=== PATIENT | male | born 1950 | race Caucasian/White ===

== ENCOUNTER 2024-10-13 11:51 | Emergency (ER) | payer OTHER, BC ==
[2024-10-13 13:54] LABS: Absolute Eosinophils 0.1 K/uL (0-0.5); Absolute Lymphocytes (CBC) 1.7 K/uL (0.7-4.9); Absolute Monocytes 0.6 K/uL (0.1-1.3); Absolute Neutrophil 4.7 K/uL (1.8-8.0); Basophils % 0.7 % (0-1.3); Eosinophils % 1.3 % (0-4.4); Hematocrit 41.1 % (39.6-49.0); Hemoglobin 14.1 g/dL (13.6-17.9); Lymphocytes % 23.5 % (15.3-44.8); MCH 31.7 pg (27.0-35.0); MCHC 34.2 g/dL (32.0-36.0); MCV 92.7 fL (80-100); Monocytes % 8.4 % (3.3-12.3); Neutrophils % 66.1 % (41.7-73.7); Nucleated Red Blood Cells % 0.1 % (0-0); Platelets 268 thou/uL (152-406); RBC Red Blood Cell Count 4.43 M/uL (4.33-5.43)
[2024-10-13 13:58] LABS: PT Prothrombin Time 11.4 SECONDS (9.4-12.5); Protime INR 1.02
[2024-10-13 14:08] LABS: Albumin 3.7 g/dL (3.4-5.0); Albumin/Globulin Ratio 1.2 (1.1-1.8); Anion Gap 9.2 mEq/L (5.0-15.0); Bilirubin Total 0.7 mg/dL (0.2-1.0); Globulin 3.1 g/dL (2.3-3.5); Potassium 4.2 mEq/L (3.5-5.1); Protein, Total 6.8 g/dL (6.4-8.2)
--- NOTE | 2024-10-13 15:05 | RAD REPORT ---
EXAMINATION: CT ABDOMEN AND PELVIS WITH CONTRAST CLINICAL INDICATION: rectal bleeding TECHNIQUE: CT abdomen and pelvis was performed, after the administration of IV contrast, as per [facility] protocol. Axial, sagittal and coronal reconstructions were obtained. One or more of the following dose reduction techniques were used: Automated exposure control, adjustment of the mA and k V according to patient size, and iterative reconstruction. Unless otherwise specified, incidental findings do not require dedicated imaging follow-up. COMPARISON: No prior exam. FINDINGS: LOWER CHEST: The visualized lung bases are clear. LIVER: Normal in size and contour. No focal lesion. Grossly unremarkable gallbladder. SPLEEN: Normal size. No focal lesion. PANCREAS: No mass, ductal dilation, or irma-pancreatic fluid. ADRENALS: Normal; no mass. KIDNEYS: Normal size and contour. No hydronephrosis. Benign cysts right kidney. GASTROINTESTINAL TRACT: No evidence of free air, significant intra-abdominal free fluid, bowel obstru ction or abscess. There is moderate diverticulosis coli of the sigmoid colon without diverticulitis. APPENDIX: Normal appendix. LYMPH NODES: No lymphadenopathy. MUSCULOSKELETAL: No acute or suspicious osseous abnormality. ADDITIONAL FINDINGS: Aortoiliac atherosclerotic changes. IMPRESSION: No acute abnormalities seen in the abdomen or pelvis. Prominent sigmoid diverticulosis coli is seen. No evidence of diverticulitis. Colonoscopy would be carrillo ggested if not recently performed.
--- NOTE | 2024-10-13 15:40 | EDPHYS ---
Physician Documentation [facility] Name: Akira Oshea Jr Age: 73 yrs Sex: Male : 1950 Arrival Date: 10/13/2024 Time: 11:51 Bed 20 Private MD: ED Physician Cornelius Castro HPI: 10/13 15:28 This 73 yrs old Male presents to ER via Ambulatory with complaints of Rectal Bleeding. rn 15:28 The patient presents to the emergency department with bleeding from the rectum/anus, rn that is mild. Onset: The symptoms/episode began/occurred today. Context: the patient has no known special context relating to the rectal area complaint(s). Associate signs and symptoms: Pertinent positives: constipation, Pertinent negatives: abdominal pain. The patient has not experienced similar symptoms in the past. Patient reports history of hemorrhoids. Started Ozempic recently and has had increasing constipation. Usually has bleeding with bowel movements and wiping back today during bowel movement passed large amount of red blood. No abdominal pain or pelvic pain. No rectal or anal pain. Single episode. Not on blood thinners. Has had a colonoscopy 3 years ago and was normal. No dizziness or shortness of breath.. 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 - Infectious Disease History:: Denies. - Social history:: Smoking status: Patient denies any tobacco usage or history of. - Family history:: not pertinent. - Hospitalizations: : No recent hospitalization is reported. ROS: 15:28 Constitutional: Negative for fever, chills, and weight loss, Cardiovascular: Negative rn for chest pain, palpitations, and edema, Respiratory: Negative for shortness of breath, cough, wheezing, and pleuritic chest pain, Abdomen/GI: Negative for abdominal pain, nausea, vomiting, diarrhea MS/Extremity: Negative for injury and deformity, Neuro: Negative for headache, weakness, numbness, tingling, and seizure, Exam: 15:28 Constitutional: This is a well developed, well nourished patient who is awake, alert, rn and in no acute distress. Cardiovascular: Regular rate and rhythm. No pulse deficits. Respiratory: No increased work of breathing, no retractions or nasal flaring. Abdomen/GI: Soft, nontender. 2 external hemorrhoids noted with dried blood. No tenderness. No evidence of thrombosed hemorrhoid. No active bleeding. No tear or fissure. Neuro: Awake and alert, GCS 15 Vital Signs: 12:30 Pulse 60; Resp 15; Temp 98.4(O); Pulse Ox 99% ; Weight 77.11 kg; Height 5 ft. 9 in. ; ss Pain 0/10; 15:34 BP 134 / 72; Pulse 62; Resp 16; Pulse Ox 99% on R/A; ko1 12:30 Body Mass Index 25.10 (77.11 kg, 175.26 cm) ss 12:30 Pain Scale: Adult ss MDM: 12:23 Medical Screening Exam initiated rn 15:28 Differential diagnosis: hemorrhoids, fissure, Diverticulosis, internal hemorrhoids, rn BILL. Data reviewed: vital signs, nurses notes, lab test result(s), radiologic studies, CT scan, and as a result, I will discharge patient. Counseling: I had a detailed discussion with the patient and/or guardian regarding the historical points, exam findings, and any diagnostic results supporting the discharge/admit diagnosis, lab results, radiology results, the need for outpatient follow up, to return to the emergency department if symptoms worsen or persist or if there are any questions or concerns that arise at home. Special discussion: I discussed with the patient/guardian in detail that at this point there is no indication for admission to the hospital. It is understood, however, that if the symptoms persist or worsen the patient needs to return immediately for re-evaluation. Based on the history and exam findings, there is no indication for further emergent testing or inpatient evaluation. I discussed with the patient/guardian the need to see the colorectal surgeon for further evaluation of the symptoms. I discussed with the patient/guardian the need to see the power transformer repairer for further evaluation of the symptoms. I discussed with the patient/guardian the need to see the general surgeon for further evaluation of the symptoms. ED course: No further bleeding. Does have external hemorrhoids but unclear if bleeding from external or internal. CT shows diverticulosis. Normal H\T\H and vital signs. Will discharge home with increased water intake, stool softeners and laxative. Strict return precautions given and understood. If improves will follow-up electively with general surgeon or GI doctor. Understands if continues to bleed or symptoms worsen will return and likely will require admission with endoscopy or colonoscopy to identify source of bleeding.. 10/13 12:24 Order name: CBC with Diff; Complete Time: 14:10 rn 10/13 12:24 Order name: CMP; Complete Time: 14:10 rn 10/13 12:24 Order name: Lipase; Complete Time: 14:10 rn 10/13 12:24 Order name: Protime (+inr); Complete Time: 14:10 rn 10/13 12:24 Order name: Ptt, Activated; Complete Time: 14:10 rn 10/13 12:24 Order name: CT Abd/Pelvis - IV Contrast Only; Complete Time: 15:12 rn 10/13 12:24 Order name: IV Saline Lock; Complete Time: 13:42 rn 10/13 12:24 Order name: Labs collected and sent; Complete Time: 13:42 rn Administered Medications: No medications were administered Disposition Summary: 10/13/24 15:39 Discharge Ordered Notes: Location: Home rn Problem: new rn Symptoms: have improved rn Condition: Stable rn Diagnosis - Encounter for screening for lower gastrointestinal disorder rn - Diverticulosis of large intestine without perforation or abscess with bleeding rn Followup: rn - With: Demarco Pinto MD - When: As needed - Reason: Recheck today's complaints, Re-evaluation by your physician Followup: rn - With: Felipe Powell MD - When: 2 - 3 days - Reason: Recheck today's complaints, Re-evaluation by your physician Discharge Instructions: - Discharge Summary Sheet rn - Constipation, Adult rn - Diverticulosis rn - Gastrointestinal Bleeding rn Forms: - Medication Reconciliation Form rn - Antibiotic pattern hand - Prescription Opioid Use rn - Patient Portal Instructions rn - Leadership Thank You Letter rn Signatures: Dispatcher [employer] Cornelius Oliva MD MD rn Blanchard, Shelby, RN RN ss Oliver, Kathy RN RN ko1
--- NOTE | 2024-10-13 15:40 | ER ---
Nurse's Notes [facility] Name: Akira Oshea Jr Age: 73 yrs Sex: Male : 1950 Arrival Date: 10/13/2024 Time: 11:51 Bed 20 Private MD: Diagnosis: Encounter for screening for lower gastrointestinal disorder;Diverticulosis of large intestine without perforation or abscess with bleeding Presentation: 10/13 12:30 Chief complaint: Patient states: Rectal bleeding while having a BM today and was ss bleeding while taking a shower. HX of hemorrhoids. Coronavirus screen: Client denies travel out of the [place] in the last 14 days. Ebola Screen: Patient denies exposure to infectious person. Patient denies travel to an Ebola-affected area in the 21 days before illness onset. Initial Sepsis Screen: Does the patient meet any 2 criteria? No. Patient's initial sepsis screen is negative. Does the patient have a suspected source of infection? No. Patient's initial sepsis screen is negative. Risk Assessment: Do you want to hurt yourself or someone else? Patient reports no desire to harm self or others. Onset of symptoms was October 13, 2024. 12:30 Method Of Arrival: Ambulatory ss 12:30 Acuity: MARGOT 3 ss Triage Assessment: 14:00 General: Appears in no apparent distress. Behavior is calm, cooperative, appropriate ko1 for age. 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 - Infectious Disease History:: Denies. - Social history:: Smoking status: Patient denies any tobacco usage or history of. - Family history:: not pertinent. - Hospitalizations: : No recent hospitalization is reported. Screenin:32 [facility] ED Fall Risk Assessment (Adult) History of falling in the last 3 months, ko1 including since admission No falls in past 3 months (0 pts) Confusion or Disorientation No (0 pts) Intoxicated or Sedated No (0 pts) Impaired Gait No (0 pts) Mobility Assist Device Used No (0 pt) Altered Elimination No (0 pt) Score/Fall Risk Level 0 - 2 = Low Risk Oriented to surroundings, Maintained a safe environment, Educated pt \T\ family on fall prevention, incl call for assistance when getting out of bed, Assessed \T\ reinforced patient's understanding of fall precautions, Hourly rounding (assess needs \T\ fall precautionary measures) done. Abuse screen: Denies threats or abuse. Denies injuries from another. Nutritional screening: No deficits noted. Tuberculosis screening: No symptoms or risk factors identified. Assessment: 13:42 Reassessment: Dr. Castro at bedside to assess pt. ss 14:00 Pain: Denies pain. ko1 Vital Signs: 12:30 Pulse 60; Resp 15; Temp 98.4(O); Pulse Ox 99% ; Weight 77.11 kg; Height 5 ft. 9 in. ; ss Pain 0/10; 15:34 BP 134 / 72; Pulse 62; Resp 16; Pulse Ox 99% on R/A; ko1 12:30 Body Mass Index 25.10 (77.11 kg, 175.26 cm) ss 12:30 Pain Scale: Adult ss ED Course: 11:56 Patient arrived in ED. ra3 12:23 Cornelius Castro MD is Attending Physician. rn 12:33 Triage completed. ss 12:33 Arm band placed on right wrist. ss 13:04 Humaira Marques, RN is Primary Nurse. ko1 13:42 CBC with Diff Sent. ss 13:42 CMP Sent. ss 13:42 Lipase Sent. ss 13:42 Protime (+inr) Sent. ss 13:42 Ptt, Activated Sent. ss 13:42 Inserted saline lock: 20 gauge in right antecubital area, using aseptic technique. ss Blood collected. Flushed with 10 mL NS. 14:00 Patient has correct armband on for positive identification. Placed in gown. Bed in low ko1 position. Call light in reach. Side rails up X 1. Provided Education on: labs. Pulse ox on. NIBP on. Door closed. Noise minimized. Lights dimmed. Warm blanket given. Pillow given. 14:00 No provider procedures requiring assistance completed. ko1 14:25 CT Abd/Pelvis - IV Contrast Only In Process Unspecified. EDMS 15:33 Demarco Pinto MD is Referral Physician. rn 15:33 Felipe Powell MD is Referral Physician. rn 15:33 IV discontinued, intact, bleeding controlled, No redness/swelling at site. Pressure ko1 dressing applied. Administered Medications: No medications were administered Medication: 15:32 VIS not applicable for this client. ko1 Outcome: 15:39 Discharge ordered by . rn 15:42 Discharged to home ambulatory, with family, ko1 15:42 Condition: stable 15:42 Discharge instructions given to patient, family, Instructed on discharge instructions, follow up and referral plans. Demonstrated understanding of instructions, follow-up care, 15:43 Patient left the ED. ko1 Signatures: Dispatcher [employer] EDMS Cornelius Castro MD MD rn Blanchard, Shelby, RN RN ss Oliver, Kathy, RN RN ko1 Lindsay Merlos
[2024-10-13 15:47] VITALS: TEMP 98.4; O2SAT 99
[2024-10-13 15:49] VITALS: BP 134/72
== END 2024-10-13 15:43 | disposition home or self-care (01) ==
LOC: ER 11:51
DX: Z13.811 Encounter for screening for lower gastrointestinal disorder (principal); K57.30 Diverticulosis of large intestine without perforation or abscess without bleeding; Z95.1 Presence of aortocoronary bypass graft
CPT/HCPCS: 85025; 36415; 85610; 85730; 83690; 80053; 74177; 99284; Q9967

== ENCOUNTER 2024-11-22 16:55 | Observation (INO) | payer OTHER, BC ==
--- NOTE | 2024-11-22 17:36 | RAD REPORT ---
EXAMINATION: CT HEAD WITHOUT CONTRAST CLINICAL INDICATION: Male, 74 years old.AMS TECHNIQUE: Axial CT images from the skull base to the vertex without intravenous contrast. Coronal an d sagittal reformatted images were created from the data set. One or more of the following dose reduction techniques were used: Automated exposure control, adjustment of the mA and/or kV according to patient size, and/or iterative reconstruction. Unless otherwise specified, incidental findings do not require dedicated imaging follow-up. [id number]. COMPARISON: No prior exam. FINDINGS: INTRACRANIAL: No acute intracranial hemorrhage. No hydrocephalus. Arachnoid cyst at the left no crani al fossa. No significant white matter disease. VASCULATURE: No visualized abnormalities in the arteries or dural venous sinuses. SCALP/SKULL: No significant soft tissue or osseous abnormalities. SINUSES: The visualized paranasal sinuses and mastoid air cells are predominantly clear. IMPRESSION: No acute intracranial abnormality.
[2024-11-22 18:15] LABS: Absolute Lymphocytes (CBC) 0.3 K/uL (0.7-4.9); Absolute Monocytes 0.5 K/uL (0.1-1.3); Absolute Neutrophil 5.5 K/uL (1.8-8.0); Basophils % 0.3 % (0-1.3); Eosinophils % 0.4 % (0-4.4); Hematocrit 38.6 % (39.6-49.0); Hemoglobin 12.9 g/dL (13.6-17.9); Lymphocytes % 5.4 % (15.3-44.8); MCH 31.4 pg (27.0-35.0); MCHC 33.5 g/dL (32.0-36.0); MCV 93.9 fL (80-100); MPV 7.9 fL (7.6-11.3); Neutrophils % 85.9 % (41.7-73.7); Platelets 183 thou/uL (152-406); RBC Red Blood Cell Count 4.11 M/uL (4.33-5.43); Red Cell Distribution Width 13.2 % (12.1-15.2)
[2024-11-22 18:48] LABS: Albumin 3.4 g/dL (3.4-5.0); Albumin/Globulin Ratio 1.1 (1.1-1.8); Anion Gap 9.6 mEq/L (5.0-15.0); Bilirubin Total 0.6 mg/dL (0.2-1.0); Potassium 3.6 mEq/L (3.5-5.1); Protein, Total 6.4 g/dL (6.4-8.2)
[2024-11-22 20:27] LABS: Specific Gravity 1.007 (1.005-1.030); Sqamous Epithelial None Seen /HPF (None Seen); Urine Bacteria <20 /HPF (<20); Urine Bilirubin NEGATIVE (Negative); Urine Blood Negative (Negative); Urine Clarity Clear (Clear); Urine Color Light-Yellow (Yellow); Urine Culture Reflex Order NOT NEEDED; Urine Glucose NEGATIVE (Negative); Urine Ketones NEGATIVE (Negative); Urine Microscopic Reflex YN ORDER UMIC; Urine Nitrite NEGATIVE (Negative); Urine Protein NEGATIVE (Negative); Urine RBC <5 /HPF (None Seen); Urine Urobilinogen Normal (Normal); Urine WBC <5 /HPF (<5)
--- NOTE | 2024-11-22 20:31 | RAD REPORT ---
EXAM: Chest Single View HISTORY: Cough;Congestion COMPARISON: None. FINDINGS: LUNGS/PLEURA: The lungs are clear. No pleural effusions or pneumothorax. No pulmonary edema. MEDIASTINUM: The mediastinal silhouette is within normal limits. CARDIAC: Mild cardiomegaly UPPER ABDOMEN: No significant abnormality. BONES: Sternotomy. No acute abnormality. LINES/TUBES/OTHER: N/A IMPRESSION: No evidence of acute cardiopulmonary disease.
[2024-11-22] MEDS ORDERED: NA CHLORIDE 0.9% 500 ML ONE (20:34)
--- NOTE | 2024-11-22 20:47 | ER ---
Nurse's Notes [facility] Name: Akira Oshea Jr Age: 74 yrs Sex: Male : 1950 Arrival Date: 11/22/2024 Time: 16:55 Bed 26 Private MD: Diagnosis: Altered mental status, unspecified;Influenza due to identified novel influenza A virus Presentation: 11/22 19:40 Chief complaint: see paper charting. Coronavirus screen: At this time, the client does jb4 not indicate any symptoms associated with coronavirus-19. Ebola Screen: No symptoms or risks identified at this time. Initial Sepsis Screen: Does the patient meet any 2 criteria? No. Patient's initial sepsis screen is negative. Does the patient have a suspected source of infection? No. Patient's initial sepsis screen is negative. Risk Assessment: Do you want to hurt yourself or someone else? Patient reports no desire to harm self or others. Onset of symptoms was November 22, 2024. 19:40 Acuity: MARGOT 3 jb4 19:40 Method Of Arrival: Ambulatory jb4 Historical: - Allergies: 20:09 No Known Allergies; jb4 - PMHx: 20:09 GERD; insomnia; jb4 - PSHx: 20:09 CABG 2011; jb4 Screenin:09 [facility] ED Fall Risk Assessment (Adult) History of falling in the last 3 months, jb4 including since admission No falls in past 3 months (0 pts) Confusion or Disorientation No (0 pts) Intoxicated or Sedated No (0 pts) Impaired Gait No (0 pts) Mobility Assist Device Used No (0 pt) Altered Elimination No (0 pt) Score/Fall Risk Level 0 - 2 = Low Risk Oriented to surroundings, Maintained a safe environment. Abuse screen: Denies threats or abuse. Nutritional screening: No deficits noted. Tuberculosis screening: No symptoms or risk factors identified. Assessment: 18:10 General: Appears in no apparent distress. comfortable, Behavior is calm, cooperative, jb4 appropriate for age. Pain: Denies pain. Neuro: Level of Consciousness is awake, alert, obeys commands, Oriented to person, place, time, situation, Pt and family reports visual hallucinations.. Cardiovascular: Patient's skin is warm and dry. Respiratory: Airway is patent Respiratory effort is even, unlabored, Respiratory pattern is regular, symmetrical. Derm: Skin is intact, Skin is pink, warm \T\ dry. 19:30 Reassessment: Patient appears in no apparent distress at this time. Patient and/or jb4 family updated on plan of care and expected duration. Pain level reassessed. Patient is alert, oriented x 3, equal unlabored respirations, skin warm/dry/pink. 20:32 Reassessment: Patient appears in no apparent distress at this time. Patient and/or jb4 family updated on plan of care and expected duration. Pain level reassessed. Patient is alert, oriented x 3, equal unlabored respirations, skin warm/dry/pink. Vital Signs: 19:39 BP 163 / 56; Pulse 91; Resp 16; Pulse Ox 96% on R/A; jb4 20:32 BP 153 / 50; Pulse 70; Resp 16; Temp 99.5(O); Pulse Ox 95% on R/A; jb4 21:30 BP 161 / 54; Pulse 76; Resp 16; Pulse Ox 95% on R/A; jb4 22:30 BP 152 / 52; Pulse 70; Resp 18; Temp 101.5; Pulse Ox 97% on R/A; jb4 22:30 Given tylenol as ordered on [employer]. jb4 ED Course: 18:26 Patient arrived in ED. iw 18:26 CT In Process Unspecified. EDMS 18:28 Magdalena Snyder FNP-C [facility]. kb 18:28 Peggy Han MD is Attending Physician. kb 18:29 Mauro Subramanian, RN is Primary Nurse. jb4 19:41 Triage completed. jb4 20:09 Patient has correct armband on for positive identification. Bed in low position. Call jb4 light in reach. Side rails up X 1. Provided Education on: plan of care. 20:09 No provider procedures requiring assistance completed. jb4 20:23 Chest Single View XRAY In Process Unspecified. EDMS 20:47 Nessa Velarde MD is Hospitalizing Provider. kb 21:30 Patient admitted, IV remains in place. jb4 Administered Medications: 20:43 Drug: NS 0.9% IV 500 ml 500 ml IV at 1 bolus once; to be given as a bolus over 30 jb4 minutes Volume: 500 ml; Route: IV; Rate: 1 bolus; Site: right antecubital; 21:15 Follow up: Response: No adverse reaction; IV Status: Completed infusion; IV Intake: jb4 500ml Intake: 21:15 IV: 500ml; Total: 500ml. jb4 Outcome: 20:47 Decision to Hospitalize by Provider. kb 21:30 Admitted to Med/surg accompanied by nurse, via wheelchair, room 206, with chart, jb4 21:30 Condition: stable 21:30 Discharge instructions given to patient, family, Instructed on the need for admit, Demonstrated understanding of instructions, 23:27 Patient left the ED. jb4 Signatures: Dispatcher [employer] EDMS Magdalena Snyder, REINFORCER-C REINFORCER-Ariadne Raya, RN RN iw Mauro Subramanian, RN RN jb4 Corrections: (The following items were deleted from the chart) 20:08 18:30 Reassessment: Patient appears in no apparent distress at this time. Patient jb4 and/or family updated on plan of care and expected duration. Pain level reassessed. Patient is alert, oriented x 3, equal unlabored respirations, skin warm/dry/pink. jb4 20:08 17:30 Reassessment: Patient appears in no apparent distress at this time. Patient jb4 and/or family updated on plan of care and expected duration. Pain level reassessed. Patient is alert, oriented x 3, equal unlabored respirations, skin warm/dry/pink. jb4 20:43 20:32 BP 153 / 50; Pulse 70bpm; Resp 16bpm; Pulse Ox 95% RA; jb4 jb4
--- NOTE | 2024-11-22 20:47 | EDPHYS ---
Physician Documentation [facility] Name: Akira Oshea Jr Age: 74 yrs Sex: Male : 1950 Arrival Date: 11/22/2024 Time: 16:55 Bed 26 Private MD: ED Physician Peggy Han HPI: 11/22 21:30 This 74 yrs old Male presents to ER via Ambulatory with complaints of AMS. kb 21:30 Patient is a 74-year-old male with a 3-day history of cough, congestion, runny nose, kb wheezing and fever. Went to Dr. Han's office today and was given a DuoNeb in the office, tested negative for flu. After they left Dr. 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 States when he got home he started watching TV was telling his about the program he was watching in great detail but the TV was not on. states patient was hallucinating. Upon arrival to the ER patient was rearranging the chairs in the lobby but is not sure why he was doing that. Denies headache, dizziness. Historical: - Allergies: 20:09 No Known Allergies; jb4 - PMHx: 20:09 GERD; insomnia; jb4 - PSHx: 20:09 CABG 2011; jb4 ROS: 21:30 Constitutional: As per HPI kb Exam: 19:50 Constitutional: This is a well developed, well nourished patient who is awake, alert, kb and in no acute distress. Head/Face: Normocephalic, atraumatic. ENT: Moist Mucous membranes Cardiovascular: Regular rate Respiratory: Respirations even and unlabored. No increased work of breathing. Talking in full sentences Abdomen/GI: Soft, non-tender. No distention Skin: Warm, dry with normal turgor. Normal color. MS/ Extremity: Pulses equal, no cyanosis. Neurovascular intact. Full, normal range of motion. Neuro: Awake and alert, GCS 15, oriented to person, place, time, and situation. 19:50 ECG was reviewed by the Attending Physician. Vital Signs: 19:39 BP 163 / 56; Pulse 91; Resp 16; Pulse Ox 96% on R/A; jb4 20:32 BP 153 / 50; Pulse 70; Resp 16; Temp 99.5(O); Pulse Ox 95% on R/A; jb4 21:30 BP 161 / 54; Pulse 76; Resp 16; Pulse Ox 95% on R/A; jb4 22:30 BP 152 / 52; Pulse 70; Resp 18; Temp 101.5; Pulse Ox 97% on R/A; jb4 22:30 Given tylenol as ordered on [employer]. jb4 MDM: 18:30 Medical Screening Exam initiated kb 21:30 Differential Diagnosis: CVA, electrolyte abnormality, intracranial bleed, UTI, volume kb depletion. Data reviewed: vital signs, nurses notes. Consideration of Admission/Observation Patient was admitted/placed on observation. Escalation of care including admission/observation considered. Management of patient was discussed with the following: Hospitalist: Dr Velarde accepts pt for admission. Historians other than the Patient: Spouse/Significant Other: . Counseling: I had a detailed discussion with the patient and/or guardian regarding the historical points, exam findings, and any diagnostic results supporting the discharge/admit diagnosis, lab results, radiology results, the need for further work-up and treatment in the hospital. 11/22 18:26 Order name: CBC with Automated Diff EDMS 11/22 18:26 Order name: Comprehensive Metabolic Panel; Complete Time: 18:51 EDMS 11/22 18:26 Order name: Urinalysis w/ reflexes EDMS 11/22 19:54 Order name: Flu; Complete Time: 20:21 kb 11/22 20:05 Order name: Urinalysis w/ reflexes; Complete Time: 20:28 EDMS 11/22 21:19 Order name: ABG: vbg; Complete Time: 23:01 kb 11/22 22:18 Order name: Ammonia EDMS 11/22 22:18 Order name: Vitamin B12 Level EDMS 11/22 22:18 Order name: T4 Free EDMS 11/22 22:18 Order name: Thyroid Stimulating Hormone EDMS 11/22 22:18 Order name: Urinalysis w/ reflexes EDMS 11/22 22:18 Order name: CBC with Automated Diff EDMS 11/22 22:18 Order name: CBC with Automated Diff EDMS 11/22 22:18 Order name: Comprehensive Metabolic Panel EDMS 11/22 22:18 Order name: Comprehensive Metabolic Panel EDMS 11/22 22:18 Order name: Phosphorus EDMS 11/22 22:18 Order name: Phosphorus EDTN 11/22 22:18 Order name: Blood Culture EDTN 11/22 18:26 Order name: CT EDTN 11/22 19:54 Order name: Chest Single View XRAY; Complete Time: 20:40 kb 11/22 18:26 Order name: EKG Electrocardiogram EDTN 11/22 19:34 Order name: Misc. Order: collect urine and obtain EKG please; Complete Time: 20:23 kb EC:50 Rate is 72 beats/min. Rhythm is regular. QRS Nolan is Normal. OR interval is normal at kb 176 msec. QRS interval is normal at 94 msec. QT interval is normal at 405 msec. Administered Medications: 20:43 Drug: NS 0.9% IV 500 ml 500 ml IV at 1 bolus once; to be given as a bolus over 30 jb4 minutes Volume: 500 ml; Route: IV; Rate: 1 bolus; Site: right antecubital; 21:15 Follow up: Response: No adverse reaction; IV Status: Completed infusion; IV Intake: jb4 500ml Disposition Summary: 11/22/24 20:47 Hospitalization Ordered Notes: Hospitalization Status: Observation kb Provider: Nessa Velarde Location: Telemetry/MedSurg (observation) kb Condition: Stable kb Problem: new kb Symptoms: are unchanged kb Bed/Room Type: [facility] Room Assignment: 206(11/22/24 21:46) kmf Diagnosis - Altered mental status, unspecified kb - Influenza due to identified novel influenza A virus kb Forms: - Medication Reconciliation Form kb - SBAR form kb - Leadership Thank You Letter kb Signatures: Dispatcher [employer] Magdalena Thompson FNP-C FNP-Ckb Bryson, James, RN RN jb4 Nadya Carranza kmf Corrections: (The following items were deleted from the chart) 21:46 20:47 kb kmf
--- NOTE | 2024-11-22 22:06 | P.HP ---
Certification for Inpatient Patient admitted to: Observation With expected LOS: <2 Midnights Practitioner: I am a practitioner with admitting privileges, knowledge of patient current condition, hospital course, and medical plan of care. Services: Services provided to patient in accordance with Admission requirements found in Title 42 Section 412.3 of the Code of Federal Regulations Patient History Date of Service: 11/22/24 Reason for admission: influenza, confusion History of Present Illness: 74-year-old male with past medical history of GERD, insomnia suspected sleep apnea CABG in 2011 presents to the ER with complaints of recently diagnosed flu and confusion. Reports recently diagnosed with flu a. Was given a DuoNeb. reports that he had low-grade fever 100.7 and had confusion. Concern for hallucinations and abnormal speech behavior. They presented to the ER. In the emergency room a chest x-ray and head CT were done. Patient did test positive for flu A. Denies any recent difficulty with sleeping although a sleep study was recently done with a new order for CPAP. Also denies any recent steroid use. Patient does report drinking alcohol. Denies any diarrhea rash headaches or vomiting. Review of Systems 10-point ROS is otherwise unremarkable Physical Examination - Physical Exam General: Alert, In no apparent distress HEENT: Atraumatic, Normocephalic Respiratory: Clear to auscultation bilaterally, Normal air movement Cardiovascular: Regular rate/rhythm Gastrointestinal: Soft and benign, Non-distended Musculoskeletal: No clubbing, No swelling Integumentary: No rashes Neurological: Normal speech - Studies Laboratory Data (last 24 hrs) 11/22/24 11/22/24 18:04 18:04 WBC 6.50 Hgb 12.9 L Hct 38.6 L Plt Count 183 Sodium 135 L Potassium 3.6 BUN 7 Creatinine 1.04 Glucose 90 Total Bilirubin 0.6 AST 18 ALT 30 Alkaline Phosphatase 69 Microbiology Data (last 24 hrs): 11/22/24 19:57 Nasopharnyx Influenza Type A Antigen Screen - Final 11/22/24 19:57 Nasopharnyx Influenza Type B Antigen Screen - Final Assessment and Plan - Problems (Diagnosis) (1) Confusion Current Visit: Yes Status: Acute - Plan Flu A Altered mental status Fever low-grade Coronary artery disease Obstructive sleep apnea GERD ETOH Use plan: Admit for observation. Unclear etiology of confusion. Could be medication, hypercapnea, hypoxemia, dehydration. Will check a blood gas. He does report drinking alcohol. And there is some concern for sleep apnea. Additional labs will include ammonia level, B12, folate, TSH. Initiate Tamiflu. Check blood cultures. IV fluids. And add ceftriaxone. - Advance Directives Does patient have a Living Will: No Does patient have a Durable POA for Healthcare: No
[2024-11-22 22:57] LABS: Blood O2 Saturation 92.6 % (92-98.5)
[2024-11-22 22:58] LABS: Arterial Blood Carboxyhemoglob 0.1 % (0-1.5); Blood Gas Oxyhemoglobin 90.6 % (94-97)
[2024-11-22] MEDS ORDERED: ACETAMINOPHEN 325 MG TABLET ONE (23:07)
[2024-11-22] MEDS: ACETAMINOPHEN 325 MG TABLET PO PRN (23:08)
[2024-11-22 23:26] VITALS: BMI 25.4
[2024-11-22] MEDS: CEFTRIAXONE 1,000 MG in NA CHLORIDE 0.9% 50 ML IVPB SCH (23:50)
[2024-11-22] MEDS: NA CHLORIDE 0.9% 1,000 ML IV SCH (23:51)
[2024-11-23 00:57] LABS: Thyroid Stimulating Hormone 0.54 uIU/mL (0.358-3.740)
[2024-11-23 04:47] LABS: Absolute Lymphocytes (CBC) 0.6 K/uL (0.7-4.9); Absolute Monocytes 0.5 K/uL (0.1-1.3); Absolute Neutrophil 4.7 K/uL (1.8-8.0); Basophils % 0.6 % (0-1.3); Eosinophils % 0.1 % (0-4.4); Hematocrit 37.5 % (39.6-49.0); Hemoglobin 12.7 g/dL (13.6-17.9); Lymphocytes % 10.1 % (15.3-44.8); MCH 31.7 pg (27.0-35.0); MCHC 33.8 g/dL (32.0-36.0); MCV 93.8 fL (80-100); MPV 8.2 fL (7.6-11.3); Monocytes % 8.8 % (3.3-12.3); Neutrophils % 80.4 % (41.7-73.7); Platelets 175 thou/uL (152-406); Red Cell Distribution Width 13.5 % (12.1-15.2)
[2024-11-23 05:00] LABS: Albumin 3.4 g/dL (3.4-5.0); Albumin/Globulin Ratio 1.2 (1.1-1.8); Anion Gap 7.6 mEq/L (5.0-15.0); Bilirubin Total 0.6 mg/dL (0.2-1.0); Globulin 2.8 g/dL (2.3-3.5); Phosphorus 3.7 mg/dL (2.5-4.9); Potassium 3.6 mEq/L (3.5-5.1); Protein, Total 6.2 g/dL (6.4-8.2)
[2024-11-23] MEDS ORDERED: HYDRALAZINE HCL 20 MG/ML VIAL IV PRN (08:29)
[2024-11-23] MEDS: OSELTAMIVIR 75 MG CAP PO SCH (09:38)
--- NOTE | 2024-11-23 12:51 | P.PN ---
Date of Service: 11/23/24 Subjective Awake, conversing well at the bedside reports Akira is better this morning but still some confusion. ROS 10 point ROS as noted above, otherwise negative Physical Exam General: Alert, oriented x2, NAD HEENT: Atraumatic, Normocephalic Respiratory: Clear to auscultation bilaterally, Normal air movement Cardiovascular: RRR, S1 S2 present Gastrointestinal: Soft on palpation, ND/NT Musculoskeletal: No clubbing, No swelling Integumentary: No rashes Neurological: Normal speech Vitals Reviewed Problem list Metabolic encephalopathy Confusion Flu A positive Febrile Coronary artery disease Obstructive sleep apnea GERD HTN Assessment and Plan Metabolic encephalopathy Confusion Flu A positive Febrile -ABG WNL -Family reports improvement -Prophylactic Rocephin -Tamiflu -TSH/Free T4, B12, and ammonia WNL Coronary artery disease Obstructive sleep apnea GERD HTN -[place]ninue home medications ETOH Use -Cessation education provided DVT ppx SCD Code status LOS 24 hour
[2024-11-23] MEDS: AMLODIPINE 2.5 MG TAB PO SCH (13:28)
[2024-11-23 14:10] VITALS: O2SAT 96
--- NOTE | 2024-11-23 15:43 | P.DS ---
Admission Date: 11/22/24 Discharge Date: 11/23/24 Disposition: ROUTINE DISCHARGE Discharge Condition: GOOD Reason for Admission: influenza, confusion Brief History of Present Illness: Diagnosis Metabolic encephalopathy Flu A positive Febrile Coronary artery disease Obstructive sleep apnea GERD HTN HPI 11/22/24 74-year-old male with past medical history of GERD, insomnia suspected sleep apnea CABG in 2011 presents to the ER with complaints of recently diagnosed flu and confusion. Reports recently diagnosed with flu a. Was given a DuoNeb. reports that he had low-grade fever 100.7 and had confusion. Concern for hallucinations and abnormal speech behavior. They presented to the ER. In the emergency room a chest x-ray and head CT were done. Patient did test positive for flu A. Denies any recent difficulty with sleeping although a sleep study was recently done with a new order for CPAP. Also denies any recent steroid use. Patient does report drinking alcohol. Denies any diarrhea rash headaches or vomiting. Hospital Course: Patient was admitted and treated for the following diagnosis Metabolic encephalopathy Flu A positive Febrile -ABG WNL -Family reports improvement -Prophylactic Rocephin -Tamiflu -TSH/Free T4, B12, and ammonia WNL Coronary artery disease Obstructive sleep apnea GERD HTN -[place]ninue home medications ETOH Use -Cessation education provided On 11/23/2024, Akira was seen on morning rounds and deemed hemodynamically stable. Tamiflu prescribed. Follow-up with PCP in 1 week. Physical Exam General: Alert, oriented x2, NAD HEENT: Atraumatic, Normocephalic Respiratory: Clear to auscultation bilaterally, Normal air movement Cardiovascular: RRR, S1 S2 present Gastrointestinal: Soft on palpation, ND/NT Musculoskeletal: No clubbing, No swelling Integumentary: No rashes Neurological: Normal speech Vital Signs/Physical Exam: Temp Pulse Resp BP Pulse Ox 98.1 F 64 16 166/75 H 96 11/23/24 12:00 11/23/24 13:28 11/23/24 12:00 11/23/24 13:28 11/23/24 12:00 Laboratory Data at Discharge: WBC 5.90 thou/uL (4.3-10.9) 11/23/24 04:33 Hgb 12.7 g/dL (13.6-17.9) L 11/23/24 04:33 Hct 37.5 % (39.6-49.0) L 11/23/24 04:33 Plt Count 175 thou/uL (152-406) 11/23/24 04:33 Sodium 141 mEq/L (136-145) D 11/23/24 04:33 Potassium 3.6 mEq/L (3.5-5.1) 11/23/24 04:33 BUN 10 mg/dL (7-18) 11/23/24 04:33 Creatinine 0.83 mg/dL (0.70-1.30) 11/23/24 04:33 Glucose 100 mg/dL (74-106) 11/23/24 04:33 Phosphorus 3.7 mg/dL (2.5-4.9) 11/23/24 04:33 Total Bilirubin 0.6 mg/dL (0.2-1.0) 11/23/24 04:33 AST 21 U/L (15-37) 11/23/24 04:33 ALT 29 U/L (16-61) 11/23/24 04:33 Alkaline Phosphatase 61 U/L (45-117) 11/23/24 04:33 Home Medications: Amlodipine [Norvasc*] 2.5 mg PO DAILY 11/23/24 Atorvastatin Calcium [Lipitor] 40 mg PO BEDTIME 11/23/24 Escitalopram Oxalate [Lexapro] 5 mg PO DAILY 11/23/24 Levocetirizine Dihydrochloride [Allergy Relief] 5 mg PO DAILY 11/23/24 Montelukast [Singulair*] 10 mg PO DAILY 11/23/24 Oseltamivir [Tamiflu*] 75 mg PO BID 5 Days #9 cap 11/23/24 Pantoprazole [Protonix Tab*] 40 mg PO DAILY 11/23/24 Terazosin HCl 2 mg PO DAILY 11/23/24 New Medications: Oseltamivir [Tamiflu*] 75 mg PO BID 5 Days #9 cap Physician Discharge Instructions: -DC IV and DC home -Follow-up with PCP in 1 to 2 weeks -Please call Dr. 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 Expect a call within 1-2 business days of discharge. Alternate: EDINSON Gonzales at [phone] Followup: Anthony Han, [Primary Care Provider] -
[2024-11-23] MEDS ORDERED: ALBUTEROL INHALER 200 PUFF/6.7 GM IH PRN (16:02)
[2024-11-23] MEDS: METHYLPREDNISOLONE 125 MG INJ IV ONE (17:11)
[2024-11-23 17:22] VITALS: BP 161/70; TEMP 99.9
[2024-11-23] MEDS ORDERED: ATORVASTATIN 40 MG TAB PO SCH (21:00)
[2024-11-24] MEDS ORDERED: ESCITALOPRAM OXALATE 10 MG TABLET PO SCH (09:00)
== END 2024-11-23 18:21 | disposition home or self-care (01) ==
LOC: ER 16:55 → 2ND 22:08
PROVIDERS: ADMIT Internal Medicine; ATTEND Hospitalist
DX: G93.41 Metabolic encephalopathy (principal); J09.X2 Influenza due to identified novel influenza A virus with other respiratory manifestations; R41.82 Altered mental status, unspecified; I25.10 Atherosclerotic heart disease of native coronary artery without angina pectoris; G47.33 Obstructive sleep apnea (adult) (pediatric); K21.9 Gastro-esophageal reflux disease without esophagitis; F10.90 Alcohol use, unspecified, uncomplicated; I10 Essential (primary) hypertension; Z95.1 Presence of aortocoronary bypass graft
CPT/HCPCS: 93005; 87040; 85025 ×2; 81001; 36415 ×2; 82140; 84100; 84443; 84439; 82607; 80053 ×2; 87804 ×2; 70450; 71045; 82805; 94760 ×2; 96360; 99285; 36600; J2919; J7040; J7030 ×2; J0696 ×2; G0378